=== PATIENT | female | born 1965 | race African-American/Black ===

== ENCOUNTER 2025-01-27 14:33 | Inpatient (IN) | payer OTHER ==
[2025-01-27] MEDS ORDERED: ALBUTEROL SO4 2.5/IPRATROPIUM 0.5 INH SOL 3 ML VIAL.NEB. NEB ONE (14:44)
[2025-01-27] MEDS ORDERED: NITROGLYCERIN SUBLINGUAL 1/150 0.4 MG TAB ONE (14:58)
[2025-01-27] MEDS ORDERED: NITROGLYCERIN SUBLINGUAL 1/150 0.4 MG TAB SL ONE (15:00)
[2025-01-27] MEDS ORDERED: NITROGLYCERIN 2% OINTMENT - 1GM PACKET TD ONE ×2 (15:02)
[2025-01-27 15:12] LABS: ABSOLUTE IMMATURE GRANULOCYTES 0.02 x10^3/uL (0.0-0.031); BASOPHILS # 0.05 x10^3/uL (0.01-0.08); EOSINOPHIL % 1.2 % (0.7-5.8); EOSINOPHILS # 0.09 x10^3/uL (0.04-0.36); MCHC 29.6 g/dl (32.2-35.5); MEAN CELL VOLUME 75.7 fl (79.4-94.8); MEAN PLT VOLUME 10.0 fl (9.4-12.3); MONOCYTE # 0.63 x10^3/uL (0.24-0.86); MONOCYTE % 8.6 % (4.7-12.5); RDW 18.6 % (12.3-16.6)
[2025-01-27] MEDS: NITROGLYCERIN 2% OINTMENT - 1GM PACKET TD ONE (15:13)
[2025-01-27 15:14] LABS: BG HCT 46.0 % (32.4-45.2); VENOUS BASE EXCESS -6.8 mmol/L (-2-2); VENOUS O2 SATURATION 83.2 % (70-80); VENOUS PCO2 68.3 mmHg (38-52)
[2025-01-27 15:18] LABS: VENOUS PH 7.154 (7.310-7.410)
[2025-01-27 15:19] LABS: INR 1.06 (0.83-1.09); PROTHROMBIN TIME (PATIENT) 11.5 SEC (9.7-13.0)
[2025-01-27] MEDS ORDERED: NITROGLYCERIN 25MG/D5W 250ML 25 MG/250 ML ML IVPB ONE (15:19)
[2025-01-27 15:22] LABS: ACTIVATED PTT 26.2 SECONDS (25.2-36.5)
[2025-01-27] MEDS ORDERED: FUROSEMIDE 40 MG/4 ML INJECTABLE VIAL ONE (15:25)
[2025-01-27] MEDS: NITROGLYCERIN 25MG/D5W 250ML 25 MG/250 ML ML IVPB SCH (15:34)
[2025-01-27] MEDS: FUROSEMIDE 40 MG/4 ML INJECTABLE VIAL IVPUSH ONE ×2 (15:34→22:23)
[2025-01-27 15:45] LABS: CO2 26 mmol/L (21-32)
[2025-01-27 15:48] LABS: CREATININE 1.1 mg/dL (0.55-1.3); SGOT/AST 33 U/L (15-37); SGPT/ALT 47 U/L (13-61)
[2025-01-27 15:49] LABS: TOT PROT 7.9 g/dl (6.4-8.2)
[2025-01-27 15:51] LABS: ALK PHOS 104 U/L (45-117)
[2025-01-27 15:52] LABS: N-TERMINAL BNP 1422.8 pg/ml (5-125)
[2025-01-27 15:54] LABS: GLUCOSE,RANDOM 427 mg/dL (74-106)
[2025-01-27] MEDS ORDERED: INSULIN REGULAR HUMAN 100 UNITS/ML *VIAL ONE (16:38)
[2025-01-27] MEDS: INSULIN REGULAR HUMAN 100 UNITS/ML *VIAL SQ ONE (16:42)
[2025-01-27 16:44] LABS: HCV DIAGNOSTIC IN-HOUSE W/RFLX NON-REACTIVE (NONREACTIVE)
[2025-01-27 16:46] LABS: HIV INTERPRETATION NEGATIVE (NEGATIVE)
[2025-01-27 18:17] LABS: BG HCT 46.0 % (32.4-45.2); VENOUS BASE EXCESS -4.8 mmol/L (-2-2); VENOUS O2 SATURATION 77.1 % (70-80); VENOUS PCO2 48.6 mmHg (38-52); VENOUS PH 7.279 (7.310-7.410)
[2025-01-27] MEDS: SODIUM CHLORIDE FOR INHALATION 3 ML VIAL.NEB IH ONE (20:18)
[2025-01-27] MEDS ORDERED: INSULIN ASPART SLIDING SCALE (NOVOLOG) 1 VIAL SQ SCH (20:30)
[2025-01-27 21:11] VITALS: BMI 32.6
[2025-01-27] MEDS: INSULIN GLARGINE (LANTUS) 100 UNITS/ML UNITS SQ SCH (22:21)
[2025-01-27] MEDS: LISINOPRIL 20 MG TABLET PO ONE (22:22)
[2025-01-27] MEDS: INSULIN ASPART SLIDING SCALE (NOVOLOG) 1 VIAL SQ SCH (22:33)
[2025-01-27] MEDS: ACETAMINOPHEN 325 MG TABLET (FP) PO PRN (22:35)
[2025-01-27 23:10] LABS: ALLENS TEST POSITIVE; ARTERIAL BLD GAS O2 SATURATION 96.7 % (95-98); ARTERIAL BLOOD GAS BASE EXCESS -2.6 mmol/L (-2-2); ARTERIAL BLOOD GAS PCO2 36.60 mmHg (35-45); ARTERIAL BLOOD GAS PO2 87.7 mmHg (80-100); BG HCT 46.0 % (32.4-45.2)
[2025-01-28 06:31] LABS: MCHC 31.0 g/dl (32.2-35.5); MEAN CELL VOLUME 73.0 fl (79.4-94.8); MEAN PLT VOLUME 9.8 fl (9.4-12.3); RDW 17.0 % (12.3-16.6)
[2025-01-28] MEDS: INSULIN (NOVOLOG) ASPART 100 UNITS/ML 10ML VIAL SQ SCH (06:35)
[2025-01-28 06:54] LABS: CO2 29.0 mmol/L (21-32)
[2025-01-28 06:55] LABS: GLUCOSE,RANDOM 110.0 mg/dL (74-106)
[2025-01-28 06:57] LABS: CREATININE 0.8 mg/dL (0.55-1.3)
[2025-01-28] MEDS ORDERED: ASPIRIN COATED 81 MG TABLET.EC PO SCH (10:00)
[2025-01-28] MEDS: HYDROCHLOROTHIAZIDE 25 MG TABLET (FP) PO SCH (10:21)
[2025-01-28] MEDS: ENOXAPARIN NA (PORCINE) 40 MG/0.4 ML DISP.SYRIN SQ SCH (10:21)
[2025-01-28] MEDS: LISINOPRIL 20 MG TABLET PO SCH (10:21)
[2025-01-28] MEDS: amLODIPine BESYLATE 5 MG TABLET (FP) PO ONE (17:29)
[2025-01-28 21:32] VITALS: RESP 18
[2025-01-29] MEDS: INSULIN ASPART SLIDING SCALE (NOVOLOG) 1 VIAL SQ SCH (06:34)
[2025-01-29 06:52] LABS: MCHC 30.9 g/dl (32.2-35.5); MEAN CELL VOLUME 72.7 fl (79.4-94.8); MEAN PLT VOLUME 9.4 fl (9.4-12.3); RDW 17.4 % (12.3-16.6)
[2025-01-29 07:33] LABS: CO2 30.0 mmol/L (21-32); CREATININE 0.8 mg/dL (0.55-1.3); GLUCOSE,RANDOM 101.0 mg/dL (74-106)
[2025-01-29 07:35] LABS: SGPT/ALT 45.0 U/L (13-61); TOT PROT 7.9 g/dl (6.4-8.2)
[2025-01-29 07:36] LABS: ALK PHOS 87.0 U/L (45-117); SGOT/AST 33.0 U/L (15-37)
[2025-01-29] MEDS: amLODIPine BESYLATE 5 MG TABLET (FP) PO SCH (09:20)
[2025-01-29] MEDS: FUROSEMIDE 40 MG/4 ML INJECTABLE VIAL IVPUSH ONE (09:45)
[2025-01-29 14:50] VITALS: BP 116/85; TEMP 97.3
[2025-01-29 16:31] VITALS: PULSE 72
== END 2025-01-29 16:47 | disposition home or self-care (01) | DRG 305 ==
LOC: JER 14:33 → JERBED 16:09 → J4W 20:18
PROVIDERS: ADMIT Hospitalist; ATTEND Internal Medicine
DX: I16.1 Hypertensive emergency (principal); J81.1 Chronic pulmonary edema; I24.89 Other forms of acute ischemic heart disease; R00.0 Tachycardia, unspecified; D86.9 Sarcoidosis, unspecified; R73.9 Hyperglycemia, unspecified; Z85.3 Personal history of malignant neoplasm of breast
CPT/HCPCS: 36415; 36600; 71045-TC-FY; 71046-TC-FY; 71275-TC; 80048; 80053; 82803; 82962; 83036; 83880; 84443; 84484; 85025; 85027; 85610; 85730; 86803; 87389; 93005; 93010; 93306-TC; 94660; 94761; 97116-GP; 97163-GP; 99291